=== PATIENT | male | born 1955 | race Caucasian/White ===

== ENCOUNTER 2022-11-30 14:48 | Inpatient (IN) | payer OTHER ==
[2022-11-30 14:58] VITALS: BMI 28.8
[2022-11-30] MEDS ORDERED: ASPIRIN 81 MG CHEWABLE TABLETS PO ONE (15:46)
[2022-11-30] MEDS ORDERED: ASPIRIN 81 MG CHEWABLE TABLETS ONE ×2 (15:54→16:01)
[2022-11-30 16:12] LABS: BASO % 0.7 % (0-2.0); EOS % 3.1 % (0-4.5); HEMATOCRIT 41.4 % (35.4-49); HEMOGLOBIN 14.1 GM/dL (11.7-16.9); LYMPH % 14.2 % (8-40); MCH 30.5 pg (25.7-33.7); MEAN CELL VOLUME 89.8 fl (80-96); MEAN PLT VOLUME 7.8 fl (7.5-11.1); MONO % 12.8 % (3.8-10.2); NEUT % 69.2 % (42.8-82.8); PLATELET COUNT 227 10^3/uL (134-434); RBC 4.62 M/mm3 (4.00-5.60); RDW 13.5 % (11.9-15.9); WHITE BLOOD COUNT 6.8 K/mm3 (4.0-10.0)
[2022-11-30 16:27] LABS: POTASSIUM 3.8 mmol/L (3.5-5.1)
[2022-11-30 16:29] LABS: CALCIUM 9.1 mg/dL (8.5-10.1)
[2022-11-30 16:30] LABS: BLOOD UREA NITROGEN 13.6 mg/dL (7-18)
[2022-11-30 16:34] LABS: BILIRUBIN,TOTAL 0.5 mg/dL (0.2-1); CREATININE 0.8 mg/dL (0.55-1.3); TOT PROT 7.2 g/dl (6.4-8.2)
[2022-11-30] MEDS ORDERED: ENOXAPARIN NA (PORCINE) 40 MG/0.4 ML DISP.SYRIN SQ ONE (19:20)
[2022-11-30] MEDS ORDERED: ENOXAPARIN NA (PORCINE) 100 MG/1 ML DISP.SYRIN SQ ONE (19:44)
[2022-11-30 20:07] LABS: INR 1.22 (0.83-1.09); PROTHROMBIN TIME (PATIENT) 14.1 SEC (9.7-13.0)
[2022-11-30] MEDS ORDERED: METOPROLOL TARTRATE 25 MG TABLET (FP) ONE (21:57)
[2022-11-30] MEDS ORDERED: ATORVASTATIN CA 40 MG TABLET (FP) ONE (21:57)
[2022-11-30] MEDS: METOPROLOL TARTRATE 25 MG TABLET (FP) PO SCH (22:06)
[2022-11-30] MEDS: ATORVASTATIN CA 40 MG TABLET (FP) PO SCH (22:06)
[2022-12-01] MEDS ORDERED: ENOXAPARIN NA (PORCINE) 80 MG/0.8 ML DISP.SYRIN SQ ONE (06:05)
[2022-12-01] MEDS: ENOXAPARIN NA (PORCINE) 80 MG/0.8 ML DISP.SYRIN SQ SCH ×2 (06:11→18:57)
[2022-12-01 07:53] LABS: BASO % 0.4 % (0-2.0); EOS % 3.6 % (0-4.5); HEMOGLOBIN 14.2 GM/dL (11.7-16.9); LYMPH % 16.3 % (8-40); MCH 30.8 pg (25.7-33.7); MCHC 34.6 g/dl (32.0-35.9); MEAN CELL VOLUME 89.1 fl (80-96); MEAN PLT VOLUME 8.4 fl (7.5-11.1); MONO % 13.4 % (3.8-10.2); NEUT % 66.3 % (42.8-82.8); PLATELET COUNT 235 10^3/uL (134-434); RDW 13.2 % (11.9-15.9); WHITE BLOOD COUNT 7.5 K/mm3 (4.0-10.0)
[2022-12-01 08:21] LABS: CALCIUM 8.6 mg/dL (8.5-10.1)
[2022-12-01 08:22] LABS: ALBUMIN 3.7 g/dl (3.4-5.0)
[2022-12-01 08:25] LABS: BLOOD UREA NITROGEN 12.6 mg/dL (7-18); CREATININE 0.8 mg/dL (0.55-1.3)
[2022-12-01 08:27] LABS: BILIRUBIN,DIRECT 0.2 mg/dL (0.0-0.2); TOT PROT 6.8 g/dl (6.4-8.2)
[2022-12-01 08:28] LABS: BILIRUBIN,TOTAL 0.9 mg/dL (0.2-1)
[2022-12-01] MEDS ORDERED: METOPROLOL TARTRATE 25 MG TABLET (FP) ONE ×2 (09:18→10:25)
[2022-12-01] MEDS ORDERED: ASPIRIN 81 MG CHEWABLE TABLETS PO SCH (10:00)
[2022-12-01] MEDS ORDERED: ASPIRIN COATED 81 MG TABLET.EC ONE (10:25)
[2022-12-01] MEDS: METOPROLOL TARTRATE 25 MG TABLET (FP) PO SCH ×2 (10:32→22:12)
[2022-12-01] MEDS: ASPIRIN COATED 81 MG TABLET.EC PO SCH (10:32)
[2022-12-01 17:17] LABS: CHOLESTEROL 121 mg/dL (50-200)
[2022-12-01 17:18] LABS: LDL CHOLESTEROL (ONLY SJRH) 70 mg/dL (5-100)
[2022-12-01 17:21] LABS: HDL CHOLESTEROL 41 mg/dL (40-60)
[2022-12-01] MEDS: ATORVASTATIN CA 40 MG TABLET (FP) PO SCH (22:12)
[2022-12-02] MEDS: ENOXAPARIN NA (PORCINE) 80 MG/0.8 ML DISP.SYRIN SQ SCH ×2 (06:24→18:02)
[2022-12-02 08:09] LABS: BASO % 0.4 % (0-2.0); EOS % 4.5 % (0-4.5); HEMATOCRIT 40.3 % (35.4-49); HEMOGLOBIN 13.8 GM/dL (11.7-16.9); LYMPH % 18.7 % (8-40); MCH 30.4 pg (25.7-33.7); MCHC 34.3 g/dl (32.0-35.9); MEAN CELL VOLUME 88.5 fl (80-96); MEAN PLT VOLUME 8.3 fl (7.5-11.1); MONO % 13.7 % (3.8-10.2); NEUT % 62.7 % (42.8-82.8); PLATELET COUNT 229 10^3/uL (134-434); RBC 4.55 M/mm3 (4.00-5.60); RDW 13.2 % (11.9-15.9)
[2022-12-02 08:28] LABS: POTASSIUM 4.1 mmol/L (3.5-5.1)
[2022-12-02 08:32] LABS: BLOOD UREA NITROGEN 16.3 mg/dL (7-18); CALCIUM 8.7 mg/dL (8.5-10.1)
[2022-12-02 08:33] LABS: ALBUMIN 3.7 g/dl (3.4-5.0)
[2022-12-02 08:36] LABS: CREATININE 0.8 mg/dL (0.55-1.3)
[2022-12-02 08:38] LABS: BILIRUBIN,TOTAL 1.2 mg/dL (0.2-1); TOT PROT 6.5 g/dl (6.4-8.2)
[2022-12-02] MEDS: ASPIRIN COATED 81 MG TABLET.EC PO SCH (09:12)
[2022-12-02] MEDS: METOPROLOL TARTRATE 25 MG TABLET (FP) PO SCH ×2 (09:12→22:07)
[2022-12-02] MEDS: ATORVASTATIN CA 40 MG TABLET (FP) PO SCH (22:07)
[2022-12-03] MEDS: ENOXAPARIN NA (PORCINE) 80 MG/0.8 ML DISP.SYRIN SQ SCH (07:00)
[2022-12-03] MEDS: ASPIRIN COATED 81 MG TABLET.EC PO SCH (12:27)
[2022-12-03] MEDS: amLODIPine BESYLATE 10 MG TABLET (FP) PO SCH (14:38)
[2022-12-03] MEDS ORDERED: FAMOTIDINE 20 MG TABLET PO ONE (19:39)
[2022-12-03] MEDS: NITROGLYCERIN SUBLINGUAL 1/150 0.4 MG TAB SL PRN ×2 (19:51→21:19)
[2022-12-03] MEDS: ATORVASTATIN CA 40 MG TABLET (FP) PO SCH (21:01)
[2022-12-04] MEDS ORDERED: ENOXAPARIN NA (PORCINE) 40 MG/0.4 ML DISP.SYRIN SQ SCH (10:00)
[2022-12-04] MEDS: ASPIRIN COATED 81 MG TABLET.EC PO SCH (10:11)
[2022-12-04] MEDS: amLODIPine BESYLATE 10 MG TABLET (FP) PO SCH (10:11)
[2022-12-04 14:00] VITALS: BP 130/69; PULSE 59; RESP 17; TEMP 98.3
== END 2022-12-04 15:12 | disposition short-term general hospital (02) | DRG 282 ==
LOC: JER 14:48 → JERBED 19:31 → OBSVTOIN 22:51 → J4S 12-01 15:55
PROVIDERS: ADMIT Internal Medicine; ATTEND Internal Medicine
DX: I21.4 Non-ST elevation (NSTEMI) myocardial infarction (principal); I10 Essential (primary) hypertension; I45.10 Unspecified right bundle-branch block; F17.210 Nicotine dependence, cigarettes, uncomplicated; E78.00 Pure hypercholesterolemia, unspecified
CPT/HCPCS: 0241U-QW; 36415; 71045-TC-FY; 78452-TC; 80048; 80053; 80061; 80076; 83036; 83735; 84443; 84484; 85025; 85379; 85610; 85730; 86850; 86900; 86901; 93005; 93010; 93017; 93306-TC; 99285-25; A9502; G0378